=== PATIENT | male | born 1940 | race Caucasian/White ===

== ENCOUNTER 2016-12-22 09:33 | Inpatient (IN) | payer MEDICARE, OTHER ==
[~2016-12-22] VITALS: Ht 172.7 cm; Wt 82.1 kg
[2016-12-22] MEDS ORDERED: PLEASE ENTER ALLERGIES MC SCH ×2 (10:00)
[2016-12-22] MEDS ORDERED: SODIUM CHLORIDE FLUSH 10ML SYR IVF ONE (10:00)
[2016-12-22] MEDS ORDERED: ASPIRIN 81 MG TABLET CHEW PO ONE (10:00)
[2016-12-22] MEDS ORDERED: ASPIRIN 81 MG TABLET CHEW ONE (10:14)
[2016-12-22] MEDS ORDERED: NITROGLYCERIN SINGLE TAB 0.4 MG SL ONE (10:14)
[2016-12-22] MEDS: NITROGLYCERIN SINGLE TAB 0.4 MG SL PRN ×3 (10:15→10:26)
[2016-12-22 10:17] LABS: WHITE BLOOD COUNT 21.8 x10^3/uL (3.4-10)
[2016-12-22 10:29] LABS: ASPARTATE AMINO TRANSFERASE 58 U/L (15-37); BLOOD UREA NITROGEN 15 mg/dL (7-18)
[2016-12-22] MEDS ORDERED: MORPHINE SULFATE 4 MG/ML, 1ML ONE ×2 (10:29→11:00)
[2016-12-22] MEDS ORDERED: ONDANSETRON 2MG/ML, 2ML ONE (10:30)
[2016-12-22] MEDS ORDERED: ONDANSETRON 2MG/ML, 2ML IVPush ONE (10:30)
[2016-12-22] MEDS ORDERED: SODIUM CHLORIDE 0.9% 1,000ML IVBOLUS ONE (10:30)
[2016-12-22] MEDS ORDERED: SODIUM CHLORIDE 0.9% 1,000 ML IV ONE ×2 (10:30→12:24)
[2016-12-22] MEDS: MORPHINE SULFATE 4 MG/ML, 1ML IVPush PRN ×2 (10:37→11:02)
[2016-12-22] MEDS ORDERED: CEFTRIAXONE PMX 1GM/50ML 50 ML IVPB ONE (11:30)
[2016-12-22] MEDS ORDERED: AZITHROMYCIN 500 MG in SODIUM CHLORIDE 0.9% 250 ML IVPB ONE (11:30)
[2016-12-22] MEDS ORDERED: CEFTRIAXONE PMX 1GM/50ML 50 ML ONE (11:39)
[2016-12-22] MEDS ORDERED: SODIUM CHLORIDE FLUSH 10ML SYR IVF PRN (12:30)
[2016-12-22] MEDS ORDERED: OMNIPAQUE 350 MG/ML, 100ML BOTTLE ONE (12:38)
[2016-12-22] MEDS ORDERED: CEFTRIAXONE PMX 1GM/50ML 50 ML IV SCH (14:00)
[2016-12-22] MEDS ORDERED: BISACODYL 10 MG SUPP PR PRN (14:30)
[2016-12-22] MEDS ORDERED: ACETAMINOPHEN 325 MG TABLET PO PRN (14:30)
[2016-12-22] MEDS ORDERED: methylPREDNISolone SOD SUCC 125 MG/2 ML IVPush SCH (14:30)
[2016-12-22] MEDS ORDERED: DOCUSATE 100 MG CAPSULE PO PRN (14:30)
[2016-12-22] MEDS ORDERED: ENOXAPARIN 40 MG/0.4 ML SQ SCH (14:30)
[2016-12-22] MEDS ORDERED: POLYETHYLENE GLYCOL 17 GM PACKET PO PRN (14:30)
[2016-12-22 15:00] LABS: IS PT STATUS REG ER OR PRE ER? YES
[2016-12-22] MEDS ORDERED: methylPREDNISolone SOD SUCC 125 MG/2 ML ONE (15:30)
[2016-12-22] MEDS ORDERED: ENOXAPARIN 40 MG/0.4 ML ONE (15:31)
[2016-12-22] MEDS: DOXYCYCLINE 100 MG in DEXTROSE 5% 250 ML IV SCH (16:03)
[2016-12-22 17:32] VITALS: BP 133/73
[2016-12-22 21:45] VITALS: BP 125/69
[2016-12-22 21:46] LABS: IS PT STATUS REG ER OR PRE ER? NO
[2016-12-22] MEDS: methylPREDNISolone SOD SUCC 125 MG/2 ML IVPush SCH (23:07)
[2016-12-23 02:11] VITALS: BP 153/76
[2016-12-23] MEDS: DOXYCYCLINE 100 MG in DEXTROSE 5% 250 ML IV SCH ×2 (04:56→16:12)
[2016-12-23 05:01] LABS: HEMOGLOBIN 13.5 g/dL (13.7-18.0); WHITE BLOOD COUNT 12.6 x10^3/uL (3.4-10)
[2016-12-23 05:10] LABS: BLOOD UREA NITROGEN 14 mg/dL (7-18)
[2016-12-23 05:21] LABS: ASPARTATE AMINO TRANSFERASE 21 U/L (15-37)
[2016-12-23 07:10] VITALS: BP 146/74
[2016-12-23] MEDS: methylPREDNISolone SOD SUCC 125 MG/2 ML IVPush SCH (07:37)
[2016-12-23] MEDS ORDERED: POTASSIUM PHOSPHATE 44 MEQ in SODIUM CHLORIDE 0.9% 500 ML IV STA (09:35)
[2016-12-23] MEDS: ASPIRIN 325 MG TABLET PO SCH (11:18)
[2016-12-23] MEDS: CEFTRIAXONE PMX 1GM/50ML 50 ML IV SCH (11:18)
[2016-12-23] MEDS: ENOXAPARIN 40 MG/0.4 ML SQ SCH (16:12)
[2016-12-23 16:19] VITALS: BP 135/74
[2016-12-23] MEDS ORDERED: ACETAMINOPHEN 325 MG TABLET PO PRN (19:00)
[2016-12-23] MEDS ORDERED: DOCUSATE 100 MG CAPSULE PO PRN (19:00)
[2016-12-23] MEDS ORDERED: BISACODYL 10 MG SUPP PR PRN (19:00)
[2016-12-23 19:48] VITALS: BP 138/70
[2016-12-23] MEDS: ATORVASTATIN 40 MG TABLET PO SCH (20:09)
[2016-12-24] MEDS: DOXYCYCLINE 100 MG in DEXTROSE 5% 250 ML IV SCH ×2 (04:23→19:46)
[2016-12-24 04:25] VITALS: BP 138/74
[2016-12-24 05:51] LABS: HEMATOCRIT 39.6 % (39.2-51.8); HEMOGLOBIN 13.2 g/dL (13.7-18.0); WHITE BLOOD COUNT 14.8 x10^3/uL (3.4-10)
[2016-12-24 05:59] LABS: ASPARTATE AMINO TRANSFERASE 16 U/L (15-37); BLOOD UREA NITROGEN 26 mg/dL (7-18)
[2016-12-24] MEDS: METOPROLOL SUCCINATE 25 MG TAB.ER.24H PO SCH (06:28)
[2016-12-24] MEDS ORDERED: predniSONE 50MG TABLET PO SCH (08:00)
[2016-12-24] MEDS ORDERED: SODIUM CHLORIDE 0.9% 1,000 ML IV ONE (08:16)
[2016-12-24 08:17] VITALS: BP 134/74
[2016-12-24] MEDS: predniSONE 50MG TABLET PO SCH (08:18)
[2016-12-24] MEDS: ASPIRIN 325 MG TABLET PO SCH (08:18)
[2016-12-24] MEDS: ENOXAPARIN 40 MG/0.4 ML SQ SCH (11:43)
[2016-12-24] MEDS: CEFTRIAXONE PMX 1GM/50ML 50 ML IV SCH (11:43)
[2016-12-24] MEDS: POLYETHYLENE GLYCOL 17 GM PACKET PO PRN (14:23)
[2016-12-24 19:35] VITALS: BP 151/92
[2016-12-24] MEDS: ATORVASTATIN 40 MG TABLET PO SCH (19:45)
[2016-12-25 02:29] VITALS: BP 147/75
[2016-12-25] MEDS: METOPROLOL SUCCINATE 25 MG TAB.ER.24H PO SCH (06:12)
[2016-12-25] MEDS: DOXYCYCLINE 100 MG in DEXTROSE 5% 250 ML IV SCH ×2 (08:08→21:32)
[2016-12-25] MEDS: ASPIRIN 325 MG TABLET PO SCH (08:08)
[2016-12-25] MEDS: predniSONE 50MG TABLET PO SCH (08:08)
[2016-12-25 08:42] VITALS: BP 143/81
[2016-12-25 11:21] LABS: BLOOD UREA NITROGEN 21 mg/dL (7-18)
[2016-12-25] MEDS ORDERED: HEPARIN 1,000 UNITS/ML, 10ML ONE (12:50)
[2016-12-25] MEDS ORDERED: MIDAZOLAM 1 MG/ML, 5ML ONE (12:50)
[2016-12-25] MEDS ORDERED: LIDOCAINE 2%, 20ML ONE (12:50)
[2016-12-25] MEDS ORDERED: BIVALIRUDIN 250 MG ONE (12:50)
[2016-12-25] MEDS ORDERED: FENTANYL PF 100 MCG/2ML ONE (12:50)
[2016-12-25] MEDS ORDERED: VERAPAMIL 2.5 MG/ML, 2ML ONE (12:50)
[2016-12-25] MEDS ORDERED: TICAGRELOR 90 MG TABLET ONE (12:50)
[2016-12-25] MEDS: CEFTRIAXONE PMX 1GM/50ML 50 ML IV SCH (13:20)
[2016-12-25] MEDS: POLYETHYLENE GLYCOL 17 GM PACKET PO PRN (14:00)
[2016-12-25 14:28] VITALS: BP 128/73
[2016-12-25 20:00] VITALS: BP 154/73
[2016-12-25] MEDS: ENOXAPARIN 40 MG/0.4 ML SQ SCH (20:00)
[2016-12-25] MEDS ORDERED: ATORVASTATIN 80 MG TABLET PO SCH (21:00)
[2016-12-25] MEDS: LISINOPRIL 10 MG TABLET PO SCH (21:32)
[2016-12-26 02:00] VITALS: BP 129/70
[2016-12-26 05:34] LABS: HEMATOCRIT 42.1 % (39.2-51.8); HEMOGLOBIN 13.9 g/dL (13.7-18.0); WHITE BLOOD COUNT 11.5 x10^3/uL (3.4-10)
[2016-12-26 05:43] LABS: BLOOD UREA NITROGEN 17 mg/dL (7-18)
[2016-12-26] MEDS: DOXYCYCLINE 100 MG in DEXTROSE 5% 250 ML IV SCH (08:00)
[2016-12-26 08:49] VITALS: BP 150/79
[2016-12-26] MEDS: LISINOPRIL 10 MG TABLET PO SCH (08:53)
[2016-12-26] MEDS: ASPIRIN 325 MG TABLET PO SCH (08:53)
[2016-12-26] MEDS: METOPROLOL SUCCINATE 25 MG TAB.ER.24H PO SCH (08:53)
[2016-12-26] MEDS ORDERED: ATOR-2 PO (09:32)
[2016-12-26] MEDS ORDERED: CEFD300C37 PO (09:32)
[2016-12-26] MEDS ORDERED: LISI-170 PO (09:32)
[2016-12-26] MEDS ORDERED: DOXY100T PO (09:32)
[2016-12-26] MEDS ORDERED: METO25TA91 PO (09:32)
[2016-12-27] MEDS ORDERED: METOPROLOL SUCCINATE 25 MG TAB.ER.24H PO SCH (06:00)
[2016-12-27] MEDS ORDERED: LISINOPRIL 20 MG TABLET PO SCH (09:00)
== END 2016-12-26 12:03 | disposition home or self-care (01) | DRG 871 ==
LOC: ED 11:04 → EDIP 12:24 → 5SO 17:14 → DCLOUNGE 12-26 11:20
PROVIDERS: ADMIT Internal Medicine; ATTEND Internal Medicine
PROC: 4A023N7 Measurement of Cardiac Sampling and Pressure, Left Heart, Percutaneous Approach (ICD-10-PCS; principal; 2016-12-22)
PROC: B2111ZZ Fluoroscopy of Multiple Coronary Arteries using Low Osmolar Contrast (ICD-10-PCS; 2016-12-22)
PROC: B2151ZZ Fluoroscopy of Left Heart using Low Osmolar Contrast (ICD-10-PCS; 2016-12-22)
DX: A41.9 Sepsis, unspecified organism (principal); J18.0 Bronchopneumonia, unspecified organism; I11.0 Hypertensive heart disease with heart failure; I25.3 Aneurysm of heart; I50.9 Heart failure, unspecified; J44.0 Chronic obstructive pulmonary disease with (acute) lower respiratory infection; E87.1 Hypo-osmolality and hyponatremia; J44.1 Chronic obstructive pulmonary disease with (acute) exacerbation; I34.0 Nonrheumatic mitral (valve) insufficiency; E78.5 Hyperlipidemia, unspecified; I25.10 Atherosclerotic heart disease of native coronary artery without angina pectoris; I25.2 Old myocardial infarction; Z79.82 Long term (current) use of aspirin; Z85.46 Personal history of malignant neoplasm of prostate; Z90.79 Acquired absence of other genital organ(s); Z87.891 Personal history of nicotine dependence; Z91.14 Patient's other noncompliance with medication regimen; Z95.5 Presence of coronary angioplasty implant and graft
CPT/HCPCS: 36415; 71010; 71275; 80048; 80053; 80061; 81001; 83605; 83735; 83880; 84100; 84145; 84443; 84484; 85025; 85379; 85610; 85730; 87040; 93005; 93458; 96361; 96365; 96367; 96372; 96375; 99156; C1894; C8929; J0456; J0583; J0696; J1644; J1650; J2250; J2405; J3010; J3490; J7060; Q9967; J2930; J7030; J7040; J7050; J7512